=== PATIENT | female | born 1955 | race Hispanic/Latino ===

== ENCOUNTER 2022-01-16 13:59 | Emergency (ER) | payer OTHER ==
--- OUTSIDE RECORDS SUMMARY | 2022-01-16 14:04 | XMS REPORT | Continuity of Care Document ---
:1955 Author Organization [facility] t Address [address] [place] [address] Care Team Providers Name Role Phone Dalila Attending Clinician Unavailable Govind Attending Clinician Unavailable JENAE Attending Clinician Unavailable Dominique Attending Clinician Unavailable Dalila Admitting Clinician Unavailable Govind Admitting Clinician Unavailable JENAE Admitting Clinician Unavailable Dominique Admitting Clinician Unavailable Payers Payer Name Policy Type Policy Number Effective Date Expiration Date S ource [place] [id number] 2021 AD[place] (HMO) 00:00:00 [place] [id number] 2020 [place] (PPO[place] 00:00:00 AETNA - CHOICE [id number] 2014 2020 (POS II) 00:00:00 00:00:00 Problems Condition Condition Condition Status Onset Resolution Last Treating Co mments Source Name Details Category Date Date Treatment Clinician Date Infestatio Infestatio Problem Active 2017-05 [facility] by bed n by Bed 1-20 da bug Bug 00:00: Medical 00 Group Candidiasi Candidiasi Problem Active [facility] of s of da vagina [facility] Diabetes Diabetes Problem Active [facility] mellitus [facility] Type 2 Type 2 Problem Active [facility] diabetes Diabetes da mellitus [facility] without without Group complicati Complicati on on Type II Type II Problem Active [place] diabetes Diabetes da mellitus [facility] uncontroll Uncontroll Gr oup ed ed Neuropathy Neuropathy Problem Active [facility] due to Due to da diabetes Diabetes Medica l mellitus [facility] Group Vitamin D Vitamin D Problem Active [facility] deficiency Deficiency [facility] Hyperlipid Hyperlipid Problem Active [facility] emia emia [facility] Central Central Problem Active [place] obesity Obesity [facility] Obstructiv Obstructiv Problem Active [facility] e sleep e Sleep da apnea Apnea Medical syndrome Syndrome Group Essential Essential Problem Active [facility] hypertensi Hypertensi da on on Medical Group Varicose Varicose Problem Active [place] veins of Veins of da lower Lower Medical extremity Extremity Grou p Gastroesop Gastroesop Problem Active [facility] hageal hageal da reflux Reflux Medical disease Disease Group Constipati Constipati Problem Active [facility] on on [facility] Group Chronic Chronic Problem Active [facility] constipati Constipati da on on Medical Group Osteoarthr Osteoarthr Problem Active [facility] itis of itis of da knee Knee Medical Group Knee pain Knee Pain Problem Active [facility] Knee joint Knee Joint Problem Active [facility] painful on Painful on da movement Movement Medica l Group Piriformis Piriformis Problem Active [facility] syndrome Syndrome [facility] Chronic Chronic Problem Active [facility] back pain Back Pain [facility] Peripheral Peripheral Problem Active [facility] edema Edema [facility] Metatarsal Metatarsal Problem Active [facility] dallin dallin [facility] Pain in Pain in Problem Active [facility] left knee Left Knee [facility] Allergies, Adverse Reactions, Alerts Allergy Allergy Status Severity Reaction(s) Onset Inactive Treating Comm ents Source Name Type Date Date Clinician Iodine Allergy Active Moderate Rash [place] to to severe da substanc Medical e Group Social History Smoking Status Start Date Stop Date Source Never Smoker [facility] Medications Ordered Filled Start Stop Current Ordering Indication Dosage Frequency Signature Comments Components Source Medication Medication Date Date Medication? Clinician (SIG) Name Name aspirin 81 aspirin 81 No 1 Q1D aspirin 81 [place] mg mg mg da tablet,lazaro tablet,lazaro tablet,del Medical yed release yed release ayed G roup Take 1 Take 1 release tablet tablet Take 1 every day every day tablet by oral by oral every day route. route. by oral route. Farxiga 10 Farxiga 10 No Farxiga 10 [place] mg tablet mg tablet mg tablet da TAKE 1 TAKE 1 TAKE 1 Medical TABLET BY TABLET BY TABLET BY Group MOUTH EVERY MOUTH EVERY MOUTH DAY IN THE DAY IN THE EVERY DAY MORNING MORNING IN THE MORNING insulin insulin No insulin [facility] syringe syringe syringe da U-100 with U-100 with U-100 with Medical needle 0.5 needle 0.5 needle 0.5 Group mL 30 gauge mL 30 gauge mL 30 x 5/16" x /16" gauge x 516" isosorbide isosorbide No isosorbide [place] mononitrate mononitrate mononitrat da ER 60 mg ER 60 mg e ER 60 mg M edical tablet,exte tablet,exte tablet,ext Group nded nded ended release 24 release 24 release 24 hr TAKE 1 hr TAKE 1 hr TAKE 1 TABLET TABLET TABLET EVERY DAY EVERY DAY EVERY DAY BY ORAL BY ORAL BY ORAL ROUTE ROUTE ROUTE DIRECTED DIRECTED DIRECTED FOR 90 FOR 90 FOR 90 DAYS. DAYS. DAYS. Janumet XR Janumet XR No Janumet XR [place] 100 100 100 da mg-1,000 mg mg-1,000 mg mg-1,000 Medical tablet,exte tablet,exte mg G roup nded nded tablet,ext release release ended TAKE 1 TAKE 1 release TABLET TABLET TAKE 1 EVERY DAY EVERY DAY TABLET BY ORAL BY ORAL EVERY DAY ROUTE ROUTE BY ORAL BEFORE BEFORE ROUTE MEALS FOR MEALS FOR BEFORE 90 DAYS. 90 DAYS. MEALS FOR 90 DAYS. losartan losartan No losartan [place] 100 mg 100 mg 100 mg da tablet TAKE tablet TAKE tablet Medical 1 TABLET BY 1 TABLET BY TAKE 1 Group MOUTH EVERY MOUTH EVERY TABLET BY DAY IN THE DAY IN THE MOUTH MORNING MORNING EVERY DAY IN THE MORNING metoprolol metoprolol No metoprolol [place] tartrate 50 tartrate 50 tartrate da mg tablet mg tablet 50 mg Medi amanda TAKE 1 TAKE 1 tablet Group TABLET TABLET TAKE 1 TWICE A DAY TWICE A DAY TABLET TWICE A DAY NovoFine NovoFine No NovoFine [facility] Plus 32 Plus 32 Plus 32 da gauge x gauge x gauge x Medica l 06/04" needle 06/04" needle 06/04" G roup use as use as needle use directed directed as directed Novolin Novolin No 18unit( Q1D Novolin [place] 70/30 U-100 70/30 U-100 s) 70/30 da Insulin 100 Insulin 100 U-100 Medical unit/mL unit/mL Insulin Group subcutaneou subcutaneou 100 s s unit/mL suspension suspension subcutaneo Inject 18 Inject 18 us units every units every suspension day by day by Inject 18 subcutaneou subcutaneou units s route in s route in every day the the by morning. 10 morning. 10 subcutaneo u ac u ac us route evening evening in the meal meal morning. 10 u ac evening meal Novolog Mix Novolog Mix No Novolog [place] 70-30 70-30 Mix 70-30 da FlexPen FlexPen FlexPen Medica l U-100 U-100 U-100 Group Insulin 100 Insulin 100 Insulin unit/mL unit/mL 100 subcutaneou subcutaneou unit/mL s pen s pen subcutaneo INJECT INJECT us pen SUBCUTANEOU SUBCUTANEOU INJECT SLY 18 SLY 18 SUBCUTANEO UNITS EVERY UNITS EVERY USLY 18 MORNING AND MORNING AND UNITS 10 UNITS 10 UNITS EVERY EVERY EVERY MORNING EVENING EVENING AND 10 UNITS EVERY EVENING ondansetron ondansetron No ondansetro [place] 8 mg 8 mg n 8 mg da disintegrat disintegrat disintegra Medical ing tablet ing tablet ting Александр up Place 1 [address] 1 every 8 every 8 tablet hours by hours by every 8 translingua translingua hours by l route as l route as translingu needed. needed. al route as needed. Os-Amanda 500 Os-Amanda 500 No 1 BID Os-Amanda 500 [place] + D3 500 + D3 500 + D3 500 da mg-5 mcg mg-5 mcg mg-5 mcg Med ical (200 unit) (200 unit) (200 unit) Group tablet Take tablet Take tablet 1 tablet 1 tablet Take 1 twice a day twice a day tablet by oral by oral twice a route. route. day by oral route. pantoprazol pantoprazol No pantoprazo [place] e 40 mg e 40 mg le 40 mg da tablet,lazaro tablet,lazaro tablet,del Medical yed release yed release ayed G roup release pravastatin pravastatin No pravastati [place] 40 mg 40 mg n 40 mg da tablet Take tablet Take tablet Medical 1 tablet 1 tablet Take 1 Group every day every day tablet by oral by oral every day route. route. by oral route. travoprost travoprost No travoprost [facility] 0.004 % eye 0.004 % eye 0.004 % da drops drops eye drops Medical INSTILL ONE INSTILL ONE INSTILL Group DROP IN DROP IN ONE DROP BOTH EYES BOTH EYES IN BOTH AT BEDTIME AT BEDTIME EYES AT BEDTIME Immunizations Ordered Immunization Filled Immunization Date Status Commen ts Source Name Name COVID-19, mRNA, COVID-19, mRNA, 2021-06-27 Completed [facility] LNP-S, PF, 100 LNP-S, PF, 100 00:00:00 Medica l Group mcg/0.5 mL dose mcg/0.5 mL dose (Moderna) (Moderna) Influenza vaccine, Influenza vaccine, 2021-03-05 Completed [place] quadrivalent, quadrivalent, 18:25:00 Medical Group adjuvanted adjuvanted COVID-19, mRNA, COVID-19, mRNA, 2020-07-30 Completed [facility] LNP-S, PF, 100 LNP-S, PF, 100 00:00:00 Medica l Group mcg/0.5 mL dose mcg/0.5 mL dose (Moderna) (Moderna) COVID-19, mRNA, COVID-19, mRNA, 2020-07-04 Completed [facility] LNP-S, PF, 100 LNP-S, PF, 100 00:00:00 Medica l Group mcg/0.5 mL dose mcg/0.5 mL dose (Moderna) (Moderna) pneumococcal pneumococcal 2020-03-13 Completed [place] conjugate PCV 13 conjugate PCV 13 15:30:00 [place] dical Group Tdap Tdap 2017-07-21 Completed [place] 18:15:00 Medical Group influenza, seasonal, influenza, 2012-05-30 Completed [facility] injectable seasonal, 00:00:00 Medical Group injectable pneumococcal, pneumococcal, 2006-05-30 Completed [place] a unspecified unspecified 00:00:00 Medical Grou p formulation formulation Vital Signs Vital Name Observation Time Observation Value Comments Source BP Diastolic 2021-12-04 00:00:00 83 [facility] Height 2021-12-04 00:00:00 61 [in_i] [facility] BMI (Body Mass 2021-12-04 00:00:00 40.8 kg/m2 [facility] intellectual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 BP Systolic 2021-12-04 00:00:00 127 mm[Hg] [facility] Body Weight 2021-12-04 00:00:00 3456 [oz_av] [facility] BP Diastolic 2021-06-17 00:00:00 87 mm[Hg] [facility] Height 2021-06-17 00:00:00 61 [in_i] [facility] BMI (Body Mass 2021-06-17 00:00:00 39.9 kg/m2 [facility] Medical Index) Group BP Systolic 2021-06-17 00:00:00 133 mm[Hg] [facility] Body Weight 2021-06-17 00:00:00 3376 [oz_av] [facility] BP Diastolic 2021-04-10 00:00:00 75 mm[Hg] [facility] Height 2021-04-10 00:00:00 61 [in_i] [facility] BMI (Body Mass 2021-04-10 00:00:00 40.2 kg/m2 [facility] Medical Index) Group BP Systolic 2021-04-10 00:00:00 146 mm[Hg] [facility] Body Weight 2021-04-10 00:00:00 3408 [oz_av] [facility] BP Diastolic 2021-03-24 00:00:00 97 mm[Hg] [facility] Height 2021-03-24 00:00:00 61 [in_i] [facility] BMI (Body Mass 2021-03-24 00:00:00 41.9 kg/m2 [facility] Medical Index) Group BP Systolic 2021-03-24 00:00:00 170 mm[Hg] [facility] Body Weight 2021-03-24 00:00:00 3552 [oz_av] [facility] BP Diastolic 2021-03-05 00:00:00 77 mm[Hg] [facility] Height 2021-03-05 00:00:00 61 [in_i] [facility] BMI (Body Mass 2021-03-05 00:00:00 41.4 kg/m2 [facility] Medical Index) Group BP Systolic 2021-03-05 00:00:00 132 mm[Hg] [facility] Body Weight 2021-03-05 00:00:00 3504 [oz_av] [facility] BP Diastolic 2020-11-27 00:00:00 82 mm[Hg] [facility] Height 2020-11-27 00:00:00 61 [in_i] [facility] BMI (Body Mass 2020-11-27 00:00:00 41.1 kg/m2 [facility] Medical Index) Group BP Systolic 2020-11-27 00:00:00 136 mm[Hg] [facility] Body Weight 2020-11-27 00:00:00 3480 [oz_av] [facility] BP Diastolic 2020-10-09 00:00:00 75 mm[Hg] [facility] Height 2020-10-09 00:00:00 61 [in_i] [facility] BMI (Body Mass 2020-10-09 00:00:00 40.6 kg/m2 [facility] Medical Index) Group BP Systolic 2020-10-09 00:00:00 142 mm[Hg] [facility] Body Weight 2020-10-09 00:00:00 3440 [oz_av] [facility] BP Diastolic 2020-07-10 00:00:00 80 mm[Hg] [facility] Height 2020-07-10 00:00:00 61 [in_i] [facility] BMI (Body Mass 2020-07-10 00:00:00 39.7 kg/m2 [facility] Medical Index) Group BP Systolic 2020-07-10 00:00:00 146 mm[Hg] [facility] Body Weight 2020-07-10 00:00:00 3360 [oz_av] [facility] BP Diastolic 2020-03-13 00:00:00 75 mm[Hg] [facility] Height 2020-03-13 00:00:00 61 [in_i] [facility] BMI (Body Mass 2020-03-13 00:00:00 40.8 kg/m2 [facility] Medical Index) Group BP Systolic 2020-03-13 00:00:00 134 mm[Hg] [facility] Body Weight 2020-03-13 00:00:00 3456 [oz_av] [facility] BP Diastolic 2020-02-13 00:00:00 72 mm[Hg] [facility] Height 2020-02-13 00:00:00 61 [in_i] [facility] BMI (Body Mass 2020-02-13 00:00:00 41.2 kg/m2 [facility] Medical Index) Group BP Systolic 2020-02-13 00:00:00 108 mm[Hg] [facility] Body Weight 2020-02-13 00:00:00 3488 [oz_av] [facility] BP Diastolic 2019-10-31 00:00:00 69 mm[Hg] [facility] Height 2019-10-31 00:00:00 61 [in_i] [facility] BMI (Body Mass 2019-10-31 00:00:00 41.8 kg/m2 [facility] Medical Index) Group BP Systolic 2019-10-31 00:00:00 133 mm[Hg] [facility] Body Weight 2019-10-31 00:00:00 3536 [oz_av] [facility] BP Diastolic 2019-06-20 00:00:00 81 mm[Hg] [facility] Height 2019-06-20 00:00:00 61 [in_i] [facility] BMI (Body Mass 2019-06-20 00:00:00 40.1 kg/m2 [facility] BP Systolic 2019-06-20 00:00:00 125 mm[Hg] [facility] Body Weight 2019-06-20 00:00:00 3392 [oz_av] [facility] BP Diastolic 2019-04-05 00:00:00 72 mm[Hg] [facility] Height 2019-04-05 00:00:00 61 [in_i] [facility] BMI (Body Mass 2019-04-05 00:00:00 40.7 kg/m2 [facility] BP Systolic 2019-04-05 00:00:00 139 mm[Hg] [facility] Body Weight 2019-04-05 00:00:00 3443.2 [oz_av] [facility] BP Diastolic 2019-03-15 00:00:00 74 mm[Hg] [facility] Height 2019-03-15 00:00:00 61 [in_i] [facility] BMI (Body Mass 2019-03-15 00:00:00 41.6 kg/m2 [facility] Medical Index) Group BP Systolic 2019-03-15 00:00:00 138 mm[Hg] [facility] Body Weight 2019-03-15 00:00:00 3521.6 [oz_av] [facility] BP Diastolic 2019-02-01 00:00:00 69 mm[Hg] [facility] Height 2019-02-01 00:00:00 61 [in_i] [facility] BMI (Body Mass 2019-02-01 00:00:00 41.8 kg/m2 [facility] Medical Index) Group BP Systolic 2019-02-01 00:00:00 124 mm[Hg] [facility] Body Weight 2019-02-01 00:00:00 3537.6 [oz_av] [facility] BP Diastolic 2018-12-19 00:00:00 80 mm[Hg] [facility] Height 2018-12-19 00:00:00 61 [in_i] [facility] BMI (Body Mass 2018-12-19 00:00:00 42.3 kg/m2 [facility] Medical Index) Group BP Systolic 2018-12-19 00:00:00 140 mm[Hg] [facility] Body Weight 2018-12-19 00:00:00 224 [lb_av] [facility] BP Diastolic 2018-12-05 00:00:00 80 mm[Hg] [facility] Height 2018-12-05 00:00:00 61 [in_i] [facility] BMI (Body Mass 2018-12-05 00:00:00 42.3 kg/m2 [facility] Medical Index) Group BP Systolic 2018-12-05 00:00:00 140 mm[Hg] [facility] Body Weight 2018-12-05 00:00:00 224 [lb_av] [facility] BP Diastolic 2018-11-28 00:00:00 80 mm[Hg] [facility] Height 2018-11-28 00:00:00 61 [in_i] [facility] BMI (Body Mass 2018-11-28 00:00:00 42.3 kg/m2 [facility]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 BP Systolic 2018-11-28 00:00:00 140 mm[Hg] [facility] Body Weight 2018-11-28 00:00:00 224 [lb_av] [facility] BP Diastolic 2018-11-02 00:00:00 77 mm[Hg] [facility] Height 2018-11-02 00:00:00 61 [in_i] [facility] BMI (Body Mass 2018-11-02 00:00:00 42.7 kg/m2 [facility]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 BP Systolic 2018-11-02 00:00:00 148 mm[Hg] [facility] Body Weight 2018-11-02 00:00:00 3612.8 [oz_av] [facility] Height 2018-07-18 00:00:00 61 [in_i] [facility] BMI (Body Mass 2018-07-18 00:00:00 41.9 kg/m2 [facility]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 Body Weight 2018-07-18 00:00:00 3545.6 [oz_av] [facility] Height 2018-07-04 00:00:00 61 [in_i] [facility] BMI (Body Mass 2018-07-04 00:00:00 41 kg/m2 [facility]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 Body Weight 2018-07-04 00:00:00 217 [lb_av] [facility] Procedures Procedure Date / Time Performing Clinician Source Performed ECG WITH INTERPRETATION 2021-06-17 00:00:00 [facility] 12 LEADS Group ECG WITH INTERPRETATION 2020-10-09 00:00:00 [facility] 12 [facility] Total Knee Arthroplasty 2017-09-13 00:00:00 [facility] Colonoscopy 2013-05-30 00:00:00 [facility] Caesarean Section [facility] Hysterectomy [facility] Plan of Care Planned Activity Planned Date Details Comments Source Future Appointment 2022-04-07 Amilcar Velez 10:00:00 [facility] [address]; [place] [address] Instructions [facility] Encounters Start End Encounter Admission Attending Care Care Encounter Source Date/Time Date/Time Type Type Clinicians Facility Department ID 2021-12-04 2021-12-04 Outpatient [facility] [id number] [place] 03:00:00 03:00:00 708 [facility] 2021-12-04 2021-12-04 Outpatient [facility] [id number] 220 [place] 03:00:00 03:00:00 718 [facility] 2021-12-04 2021-12-04 Waldo WIL[place]INS [place] - [id number] [facility] 00:00:00 00:00:00 Discovery Dalila da PA: [address] [facility] [address] [address] , Ph. 2021-11-19 2021-11-19 Outpatient [facility]G [id number] 220 [place] 06:02:00 06:02:00 623 [facility] 2021-07-21 2021-07-21 Outpatient [facility]G [id number] 220 [place] 03:45:00 03:45:00 311 [facility] 2021-07-21 2021-07-21 Outpatient [facility] MMG [id number] 220 [place] 03:45:00 03:45:00 527 [facility] 2021-06-17 2021-06-17 Outpatient [facility]G [id number] 220 [place] 04:56:00 04:56:00 119 [facility] 2021-06-17 2021-06-17 Outpatient [facility] MMG [id number] 220 [place] 04:56:00 04:56:00 120 [facility] 2021-06-17 2021-06-17 Waldo WIL[place]INS [place] - [id number] M [facility] 00:00:00 00:00:00 Discovery Dalila da [facility]: [address] [facility] [address] [address] , Ph. 2021-06-15 2021-06-15 Outpatient [facility] MMG [id number] 220 [place] 03:34:00 03:34:00 117 [facility] 2021-04-10 2021-04-10 Outpatient [facility] MMG [id number] 211 [place] 11:33:00 11:33:00 112 [facility] 2021-04-10 2021-04-10 Outpatient [facility] MMG [id number] 211 [place] 11:33:00 11:33:00 222 [facility] 2021-04-10 2021-04-10 Outpatient [facility] MMG [id number] 211 [place] 11:33:00 11:33:00 230 [facility] 2021-04-10 2021-04-10 Waldo MMG [place] - [id number] M [facility] 00:00:00 00:00:00 Discovery devon Conner PA: [address] [facility] - [address], [facility] [address] , Ph. 2021-04-03 2021-04-03 Outpatient [facility] MMG [id number] 211 [place] 02:33:00 02:33:00 105 [facility] 2021-03-24 2021-03-24 Outpatient Korefugiola_A [facility]G MMG [id number]- [place] 10:59:00 10:59:00 026 [facility] 2021-03-24 2021-03-24 Marita MMG [place] - [id number] M [facility] 00:00:00 00:00:00 Discovery devon Peterson PA-C: [address] [facility] - [address], [facility] [address] , Ph. 2021-03-05 2021-03-05 Outpatient [facility] MMG [id number] 211 [place] 04:25:00 04:25:00 007 [facility] 2021-03-05 2021-03-05 Outpatient [facility] MMG [id number] 211 [place] 04:25:00 04:25:00 009 [facility] 2021-03-05 2021-03-05 Waldo MMG [place] - [id number] M [facility] 00:00:00 00:00:00 Discovery Dalila da PA: [address] [facility] - [address], [facility] [address] , Ph. 2020-12-11 2020-12-11 [address] [facility] [id number] [place] 02:33:00 02:33:00 [place] [id number] [facility] 2020-11-28 2020-11-28 Outpatient [facility] MMG [id number] 211 [place] 10:17:00 10:17:00 001 [facility] 2020-11-27 2020-11-27 Outpatient [facility] MMG [id number] 210 [place] 04:40:00 04:40:00 701 [facility] 2020-11-27 2020-11-27 Waldo MMG [place] - [id number] M [facility] 00:00:00 00:00:00 Discovery Dalila da PA: [address] [facility] [address] [place] [address] , Ph. 2020-11-26 2020-11-26 Outpatient [facility] MMG [id number] 210 [place] 05:32:00 05:32:00 630 [facility] 2020-11-08 2020-11-08 Outpatient Hawkins_M MMG MMG [id number] [place] 06:31:00 06:31:00 612 [facility] 2020-10-14 2020-10-14 Outpatient Hawkins_M [facility]G MMG [id number]- [place] 03:28:00 03:28:00 518 [facility] 2020-10-09 2020-10-09 Outpatient Hawkins_M [facility]G MMG [id number]- [place] 04:10:00 04:10:00 513 [facility] 2020-10-09 2020-10-09 Waldo MMG [place] - [id number] M [facility] 00:00:00 00:00:00 Discovery Dalila da PA: [address] [facility] [place] - [address], [facility] [address] , Ph. 2020-10-04 2020-10-04 Outpatient [facility] MMG [id number] 210 [place] 01:01:00 01:01:00 508 [facility] 2020-09-17 2020-09-17 Outpatient [facility] MMG [id number] 210 [place] 05:44:00 05:44:00 421 [facility] 2020-08-30 2020-08-30 Outpatient [facility] MMG [id number] 210 [place] 01:02:00 01:02:00 403 [facility] 2020-07-26 2020-07-26 Outpatient [facility] MMG [id number] 210 [place] 01:03:00 01:03:00 227 [facility] 2020-07-17 2020-07-17 Outpatient [facility] MMG [id number] 210 [place] 04:45:00 04:45:00 218 [facility] 2020-07-10 2020-07-10 Outpatient [facility] MMG [id number] 210 [place] 05:07:00 05:07:00 211 [facility] 2020-07-10 2020-07-10 Waldo MM [place] - [id number] M [facility] 00:00:00 00:00:00 Discovery Dalila da PA: [address] [facility] [address] [place] [address] , Ph. 2020-06-23 2020-06-23 Outpatient LA MADDOX UTMARY LOU [id number] [place] 10:22:00 10:22:[id number] [facility] 2020-06-10 2020-06-10 Outpatient [facility] MMG [id number] 210 [place] 04:26:00 04:26:00 112 [facility] 2020-05-07 2020-05-07 Outpatient [facility] MMG [id number] 201 [place] 01:03:00 01:03:00 209 [facility] 2020-04-02 2020-04-02 Outpatient [facility] MMG [id number] 201 [place] 01:04:00 01:04:00 104 [facility] 2020-04-02 2020-04-02 Outpatient [facility] MMG [id number] 201 [place] 01:04:00 01:04:00 111 [facility] 2020-03-15 2020-03-15 Outpatient [facility] MMG [id number] 201 [place] 11:28:00 11:28:00 017 [facility] 2020-03-13 2020-03-13 Outpatient [facility] MMG [id number] 201 [place] 03:54:00 03:54:00 015 [facility] 2020-03-13 2020-03-13 Outpatient [facility] MMG [id number] 201 [place] 03:54:00 03:54:00 016 [facility] 2020-03-13 [facility] [place] [facility] [id number] 00:00:00 00:00:00 Discovery Dalila da PA: [address] [facility] [place] [address], [facility], [facility] [place] [address] , Ph. 2020-03-12 2020-03-12 Outpatient [facility] MMG [id number] 201 [place] 12:46:00 12:46:00 014 [facility] 2020-03-03 2020-03-03 Outpatient [facility] MMG [id number] 201 [place] 04:43:00 04:43:00 005 [facility] 2020-02-26 2020-02-26 Outpatient [facility] MMG [id number] 200 [place] 11:05:00 11:05:00 929 [facility] 2020-02-16 2020-02-16 Outpatient [facility] MMG [id number] 200 [place] 12:26:00 12:26:00 919 [facility] 2020-02-14 2020-02-14 Outpatient [facility] MMG [id number] 200 [place] 10:48:00 10:48:00 [facility] 2020-02-13 2020-02-13 Outpatient [facility] [id number] 200 [place] 04:21:00 04:21:00 [facility] 2020-02-13 2020-02-13 [place] [facility] [place] - [id number] M [place] 00:00:00 00:00:00 Discovery Dalila da PA: [address] [facility] [place] - [address], [facility] [address] , Ph. 2019-11-09 2019-11-09 Outpatient [facility] [id number] 200 [place] 11:36:00 11:36:00 [facility] 2019-11-01 2019-11-01 Outpatient [facility] [id number] 200 [place] 12:47:00 12:47:00 [facility] 2019-10-31 2019-10-31 Outpatient [facility]G [id number] 200 [place] 03:33:00 03:33:00 [facility] 2019-10-31 2019-10-31 [place] [facility] [place] - [id number] M [place] 00:00:00 00:00:00 Discovery Dalila da PA: [address] [facility] [place] - [address] [place] [address] , Ph. 2019-08-24 2019-08-24 Outpatient [facility] [id number] 200 [place] 10:50:00 10:50:00 [facility] 2019-08-13 2019-08-13 Outpatient [facility] [id number] 200 [place] 06:19:00 06:19:00 [facility] 2019-08-03 2019-08-03 Outpatient [facility] [id number] 200 [place] 12:31:00 12:31:00 [facility] 2019-06-20 2019-06-20 Outpatient [facility] [id number] 200 [place] 05:03:00 05:03:00 122 devon [facility] 2019-06-20 2019-06-20 [place] [facility] [place] - [id number] M [place] 00:00:00 00:00:00 Discovery devon Conner PA: [address] [place], [place] [address] - [address], [facility] [place] [address] , Ph. 2019-05-07 2019-05-07 Outpatient Am[facility]aux [facility] [id number] 200 [place] 10:05:00 10:05:00 Tiburcio osorio [facility] 2019-04-05 2019-04-05 [place] [facility] [place] - [id number] M [place] 00:00:00 00:00:00 Discovery devon Conner PA: [address] [place], [place] [address] - [address], [facility] [place] [address] , Ph. 2019-03-15 2019-03-15 [place] [facility] [place] - [id number] M [place] 00:00:00 00:00:00 Discovery devon Conner PA: [address] [place], [place] [address] - [address], [facility] [place] [address] , Ph. 2019-02-01 2019-02-01 Waldo [facility] [place] - [id number] M [place] 00:00:00 00:00:00 Discovery devon Conner PA: [address] [place] [address], [place] [address], [facility] [place] [address] , Ph. 2018-12-19 2018-12-19 [place] [facility] [place] - [id number] M [place] 00:00:00 00:00:00 Discovery devon Vang MD: [address] [place] [address] [address], [place] [address] , Ph. 2018-12-05 2018-12-05 [place] [facility] [place] - [id number] M [place] 00:00:00 00:00:00 Discovery devon Vang MD: [address] [place] [address] - [address], [place] [address] , Ph. [phone] 2018-11-28 2018-11-28 [place] - [id number] M [place] 00:00:00 00:00:00 Discovery devon Vang MD: [address] [place] [address] - [address], [place] [address] , Ph. [phone] 2018-11-02 2018-11-02 Waldo [place] - [id number] M [place] 00:00:00 00:00:00 Discovery devon Conner PA: [address] [place] [address], [place] [address] [address] , Ph. 2018-07-18 2018-07-18 Waldo [place] - [id number] M [place] 00:00:00 00:00:00 Discovery devon Conner PA: [address] [place] [address], [place] [address], [facility] [address] , Ph. 2018-07-04 2018-07-04 [place] - [id number] M [place] 00:00:00 00:00:00 Discovery devon Vang MD: [address] [place] [address] - [facility] [address], [place] [address] , Ph. Results Test Test Test Results Result Source Description Time Comments Comments Microalbumin NormalMicroalbulminuriaMacroalbumi derrick [place] [Mass/volume] 11-23 Medical in Urine 16:22 Group :00 quest collection 2021-03-20 00:00:00 Test Item Value Reference Range Interpretation Comme nts quest collection (test code = quest collection) [facility] [place] [facility] [Mass/volume] in [id number] 12:02:00 NormalMicroalbulminuriaMacroalbuminuriaMatagorda [facility] blood [id number] 02:27:00 Test Item Value Reference Range Interpretation Comments [facility] blood collection sent to [facility] (test code = [facility] blood collection) [facility] blood [id number] 02:27:00 Test Item Value Reference Range Interpretation Comments [facility] blood collection sent to [facility] (test code = [facility] blood collection) [facility]
[2022-01-16 14:42] LABS: Urine Blood 2+ (Negative); Urine Glucose 3+ (Negative); Urine Protein 1+ (Negative); Urine Specific Gravity <=1.005 (1.005-1.030); Urine pH 5.5 (5.0-7.0)
[2022-01-16 15:08] LABS: Absolute Lymphocytes (CBC) 0.9 K/uL (0.7-4.9); Hematocrit 42.2 % (36.0-45.0); Lymphocytes % 5.8 % (15.3-44.8); MCV 92.5 fL (80-100); MPV 7.8 fL (7.6-11.3); RBC Red Blood Cell Count 4.56 M/uL (3.86-4.86)
[2022-01-16 15:56] LABS: Urine Bacteria 20-50 /HPF (<20)
[2022-01-16 16:23] LABS: ALT/SGPT 24 U/L (12-78); AST/SGOT 29 U/L (15-37); Albumin 2.9 g/dL (3.4-5.0); Alkaline Phosphatase 112 U/L (45-117); BUN Blood Urea Nitrogen 22 mg/dL (7-18); Bicarbonate 29 mmol/L (21-32); Bilirubin Total 0.7 mg/dL (0.2-1.0); Glomerular Filtration Rate 60 ml/min (=/>90); Glucose Level 239 mg/dL (74-106); Lipase 48 U/L (73-393); Potassium 4.7 mmol/L (3.5-5.1); Sodium Level 134 mmol/L (136-145)
[2022-01-16] MEDS ORDERED: FENTANYL CITR 100 MCG/2 ML ONE (16:58)
[2022-01-16] MEDS ORDERED: CEFTRIAXONE 1000 MG/VIAL ONE (16:58)
[2022-01-16] MEDS ORDERED: NA CHLORIDE 0.9% 500 ML ONE (16:59)
[2022-01-16] MEDS ORDERED: NA CHLORIDE 0.9% 100 ML ONE (16:59)
--- NOTE | 2022-01-16 17:18 | RAD REPORT ---
EXAM DESCRIPTION: CT - Stone Protocol - 01/16/2022 5:10 pm CLINICAL HISTORY: lower abdomen pain COMPARISON: No comparisons TECHNIQUE: Axial 3 mm thick images were obtained without oral or IV contrast. The [id number] span s the entirety of the system including uppermost abdomen and lung bases. All CT scans are performed using dose optimization technique as appropriate and may include automated exposure control or mA/KV adjustment according to patient size. FINDINGS: Mild right-sided hydronephrosis is present. There is a 3 mm distal right ureter stone appr oximately 2 cm from the UVJ. Perinephric fluid in stranding are present on the right. No other obstru cting or nonobstructing calculi. No left-sided calculi or hydronephrosis present. No suspicious renal masses. Isodense masses and pyelonephritis are not excluded on a stone protocol CT scan. No signific ant adrenal finding. No urinary bladder suspicious finding. Imaged portions of the liver, spleen and pancreas show no suspicious findings on non-contrast imaging . No gallbladder or biliary tree abnormality identified. No suspicious bowel findings. Uterus and ovaries show no suspicious findings. Appendix is normal. No hernia, mass or bulky lymphadenopathy noted. No free air, free fluid or inflammatory stranding. No significant bony abnormality. Right hemidiaphragm elevation is present with chronic right base ate lectasis. IMPRESSION: Mild right-sided hydronephrosis secondary to a 3 mm distal right ureteral stone approxim ately 2 cm from the UVJ. Right perinephric stranding is present and there is mild edema along the course of the right ureter. Isodense masses and pyelonephritis are not excluded on stone protocol technique.
[2022-01-16] MEDS ORDERED: TAMSULOSIN 0.4 MG SR CAP ONE (17:53)
[2022-01-16] MEDS ORDERED: MAGNESIUM SULFATE 1 gm IVPB 1 GM/100 ML BAG IV ONE (17:53)
--- NOTE | 2022-01-16 18:58 | EDPHYS ---
Physician Documentation [facility] Name: Brenda Hilton Age: 66 yrs Sex: Female : 1955 Arrival Date: 01/16/2022 Time: 14:03 Bed 23 Private MD: Gabby Tejedah ED Physician Becky Church HPI: 01/16 15:00 This 66 yrs old Female presents to ER via Ambulatory with complaints of cp Urinary Incontinence, Pelvic Pain, Dizziness, Nausea. 15:00 The patient presents with abdominal pain in the lower abdomen. Onset: The cp symptoms/episode began/occurred yesterday. 15:00 Associated signs and symptoms: Pertinent positives: dysuria, nausea, dizziness, cp Pertinent negatives: chest pain, constipation, diarrhea, fever, vomiting. The symptoms are described as constant. Severity of pain: in the emergency department the pain is unchanged. Historical: - Allergies: 14:27 shrimp; iw - Home Meds: 14:27 Humulin 70/30 U-100 Insulin 100 unit/mL (70-30) Sub-Q crtg [Active]; Janumet XR iw 100-1,000 mg oral TM24 1 tab once daily [Active]; Farxiga 10 mg oral tab 1 tab once daily [Active]; isosorbide mononitrate 60 mg Oral Tb24 1 tab once daily [Active]; losartan 100 mg oral tab 1 tab once daily [Active]; pravastatin 40 mg oral tab 1 tab once daily [Active]; aspirin 81 mg Oral TbEC 1 tab once daily [Active]; metoprolol tartrate 50 mg oral tab 2 times per day [Active]; Citracal 200 mg (950 mg) Oral tab [Active]; Systane Nighttime 94-3 % ophthalmic (eye) oint [Active]; Lumigan 0.03 % ophthalmic (eye) drop 1 drop once daily [Active]; - PMHx: 14:27 Diabetes mellitus; Hypertensive disorder; iw - PSHx: 14:27 section; iw - Immunization history:: Client reports receiving the 2nd dose of the Covid vaccine. - Social history:: Smoking status: Patient denies any tobacco usage or history of. ROS: 15:05 Constitutional: Negative for body aches, chills, fever, poor PO intake. cp 15:05 Eyes: Negative for injury, pain, redness, and discharge. cp 15:05 ENT: Negative for drainage from ear(s), ear pain, sore throat, difficulty swallowing, difficulty handling secretions. 15:05 Cardiovascular: Negative for chest pain, edema, palpitations. 15:05 Respiratory: Negative for cough, shortness of breath, wheezing. 15:05 Abdomen/GI: Positive for abdominal pain, of the lower abdomen, Negative for vomiting, diarrhea, constipation. 15:05 : Positive for pelvic pain, Negative for vaginal bleeding, vaginal discharge. 15:05 Neuro: Positive for dizziness, Negative for altered mental status, weakness. 15:05 All other systems are negative. Exam: 15:10 Constitutional: The patient appears in no acute distress, alert, awake, non-toxic, well cp developed, well nourished, overweight 15:10 Head/Face: Normocephalic, atraumatic. cp 15:10 Eyes: Periorbital structures: appear normal, Conjunctiva: normal, no exudate, no injection, Sclera: no appreciated abnormality, Lids and lashes: appear normal, bilaterally. 15:10 ENT: External ear(s): are unremarkable, Nose: is normal, Mouth: Lips: moist, Oral mucosa: moist, Posterior pharynx: Airway: no evidence of obstruction, patent. 15:10 Chest/axilla: Inspection: normal. 15:10 Cardiovascular: Rate: tachycardic, Rhythm: regular. 15:10 Respiratory: the patient does not display signs of respiratory distress, Respirations: normal, no use of accessory muscles, no retractions, labored breathing, is not present, Breath sounds: are clear throughout, no decreased breath sounds, no stridor, no wheezing. 15:10 Abdomen/GI: Inspection: abdomen appears normal, Bowel sounds: active, all quadrants, Palpation: soft, in all quadrants, moderate abdominal tenderness, in the right lower quadrant and left lower quadrant, rebound tenderness, is not appreciated, involuntary guarding, is not appreciated. 15:10 Back: CVA tenderness, is absent. 15:10 Skin: cellulitis, is not appreciated, no rash present. 15:10 Neuro: Orientation: to person, place \T\ time. Mentation: is normal, Motor: moves all fours, strength is normal, Sensation: is normal, Gait: is steady, at a normal pace, without difficulty. Vital Signs: 14:25 BP 123 / 63; Pulse 101; Resp 18; Temp 99.0; Pulse Ox 97% on R/A; Weight 95.25 kg; iw Height 5 ft. 1 in. (154.94 cm); 16:39 BP 132 / 63; Pulse 100; Resp 18; Pulse Ox 97% ; tp1 17:25 BP 109 / 52; Pulse 101; Resp 16; Pulse Ox 95% on R/A; tp1 18:23 BP 118 / 52; Pulse 95; Resp 16; Pulse Ox 95% on R/A; tp1 14:25 Body Mass Index 39.68 (95.25 kg, 154.94 cm) iw MDM: 16:37 Patient medically screened. cp 18:57 Data reviewed: vital signs, nurses notes, lab test result(s), radiologic studies, CT cp scan. 18:57 Differential diagnosis: appendicitis, diverticulitis, Pyelonephritis, Ureterolithiasis, cp urinary tract infection. Counseling: I had a detailed discussion with the patient and/or guardian regarding: the historical points, exam findings, and any diagnostic results supporting the discharge/admit diagnosis, lab results, radiology results, to return to the emergency department if symptoms worsen or persist or if there are any questions or concerns that arise at home. Response to treatment: the patient's symptoms have markedly improved after treatment, and as a result, I will discharge patient. 01/16 14:42 Order name: Urine Dipstick-Ancillary; Complete Time: 14:47 EDMS 01/16 15:55 Interpretation: Normal except: UGLUC 3+; UKET 2+; UBLD 2+; UPROT 1+; UESTR Trace. cp 01/16 14:47 Order name: Ketone, Serum; Complete Time: 16:37 cp 01/16 14:47 Order name: CBC with Diff; Complete Time: 15:54 cp 01/16 15:55 Interpretation: Normal except: WBC 14.70; LILI% 83.0; LYM% 5.8; NEUT A 12.2; MNA 1.6. cp 01/16 14:47 Order name: CMP; Complete Time: 16:37 cp 01/16 18:58 Interpretation: Normal except: NA 134; CL 97; GLUC 239; BUN 22; GFR 60; ALB 2.9; GLOB cp 4.1; A/G 0.7. 01/16 14:47 Order name: Lipase; Complete Time: 16:37 cp 01/16 14:47 Order name: Urine Microscopic Only; Complete Time: 16:37 cp 01/16 17:35 Interpretation: Normal except: UWBC 21-50; URBC 11-20; UBACT 20-50. cp 01/16 14:42 Order name: Urine Dipstick-Ancillary (obtain specimen); Complete Time: 14:42 iw 01/16 16:06 Order name: Urine Culture EDMS 01/16 16:41 Order name: CT Stone Protocol; Complete Time: 17:34 cp 01/16 14:47 Order name: IV Saline Lock; Complete Time: 15:00 cp 01/16 14:47 Order name: Labs collected and sent; Complete Time: 15:00 cp 01/16 15:29 Order name: Labs - recollect needed: recollect green top; Complete Time: 15:48 eb Administered Medications: 16:54 Drug: fentaNYL (PF) 25 mcg Route: IVP; Site: right antecubital; tp1 17:28 Follow up: Response: Pain is decreased tp1 16:57 Drug: Rocephin (cefTRIAXone) 1 grams Route: IV; Rate: calculated rate; Site: right tp1 antecubital; 17:54 Follow up: Response: No adverse reaction; IV Status: Completed infusion; IV Intake: tp1 100ml 17:24 Drug: NS 0.9% 500 ml Route: IV; Rate: bolus; Site: right antecubital; tp1 19:06 Follow up: IV Status: Completed infusion; IV Intake: 500ml tp1 17:47 Drug: Flomax (tamsulosin) 0.4 mg Route: PO; tp1 18:51 Follow up: Response: No adverse reaction tp1 17:54 Drug: Magnesium Sulfate 1 grams Route: IVPB; Infused Over: 1 hrs; Site: right tp1 antecubital; 18:51 Follow up: Response: No adverse reaction; IV Status: Completed infusion; IV Intake: tp1 100ml Disposition: 01/17 19:06 STAFF ATTESTATION STATEMENT: I was immediately available onsite in the emergency sd2 department for consultation in the care of this patient. I did not see or examine this patient. Becky Church MD. Disposition Summary: 01/16/22 18:57 Discharge Ordered Location: Home cp Problem: new cp Symptoms: have improved cp Condition: Stable cp Diagnosis - Calculus of ureter - right(01/16/22 19:00) cp - UTI/ Urinary tract infection, site not specified cp Followup: cp - With: Raffaele Weeks MD - When: 2 - 3 days - Reason: if pain continues Discharge Instructions: - Discharge Summary Sheet cp - Kidney Stones cp - Renal Colic cp - Urinary Tract Infection, Adult cp Forms: - Medication Reconciliation Form cp - Thank You Letter cp - Antibiotic Education cp - Prescription Opioid Use cp Prescriptions: - Flomax 0.4 mg Oral capsule - take 1 capsule by ORAL route once daily 1/2 hour following the same meal each cp day; 5 capsule; Refills: 0, Product Selection Permitted - Ibuprofen 800 mg Oral Tablet - take 1 tablet by ORAL route every 8 hours As needed take with food; 30 tablet; cp Refills: 0, Product Selection Permitted - Zofran 4 mg Oral Tablet - take 1 tablet by ORAL route every 12 hours As needed; 20 tablet; Refills: 0, cp Product Selection Permitted - Tylenol-Codeine #3 300 mg-30 mg Oral - take 2 tablet by ORAL route every 6-8 hours; 14 tablet; Refills: 0, Product cp Selection Permitted - Cipro 500 mg Oral Tablet - take 1 tablet by ORAL route every 12 hours for 7 days; 14 tablet; Refills: 0, cp Product Selection Permitted Signatures: Dispatcher [employer] Luzmaria Santacruz RN RN iw Aly Martinez PA PA cp Luciana Anthony Tiffany, RN RN alex1 Becky Church MD MD sd2 Corrections: (The following items were deleted from the chart) 01/16 14: 14:27 Allergies: No Known Allergies; iw 14: 14:27 PMHx: Hyperthyroidism; iw 19:00 18:57 Calculus of ureter cp cp 19: 18:57 Calculus of kidney with calculus of ureter cp cp
--- NOTE | 2022-01-16 18:58 | ER ---
Nurse's Notes [facility] Name: Brenda Hilton Age: 66 yrs Sex: Female : 1955 Arrival Date: 01/16/2022 Time: 14:03 Bed 23 Private MD: Ralph Tejeda Diagnosis: Calculus of ureter-right;UTI/ Urinary tract infection, site not specified Presentation: 01/16 14:25 Chief complaint: Patient states: last night I went to go pee and I didn't make it, and iw i have lower abd pain, also have nausea , no appetite. Coronavirus screen: Client presents with at least one sign or symptom that may indicate coronavirus-19. Ebola Screen: Patient negative for fever greater than or equal to 101.5 degrees Fahrenheit, and additional compatible Ebola Virus Disease symptoms Patient denies exposure to infectious person. Patient denies travel to an Ebola-affected area in the 21 days before illness onset. No symptoms or risks identified at this time. Initial Sepsis Screen: Does the patient meet any 2 criteria? No. Patient's initial sepsis screen is negative. Does the patient have a suspected source of infection? No. Patient's initial sepsis screen is negative. Risk Assessment: Do you want to hurt yourself or someone else? Patient reports no desire to harm self or others. Onset of symptoms was January 14, 2022. 14:25 Method Of Arrival: Ambulatory iw 14:25 Acuity: JAVY 3 iw Historical: - Allergies: 14:27 shrimp; iw - Home Meds: 14:27 Humulin 70/30 U-100 Insulin 100 unit/mL (70-30) Sub-Q crtg [Active]; Janumet XR iw 100-1,000 mg oral TM24 1 tab once daily [Active]; Farxiga 10 mg oral tab 1 tab once daily [Active]; isosorbide mononitrate 60 mg Oral Tb24 1 tab once daily [Active]; losartan 100 mg oral tab 1 tab once daily [Active]; pravastatin 40 mg oral tab 1 tab once daily [Active]; aspirin 81 mg Oral TbEC 1 tab once daily [Active]; metoprolol tartrate 50 mg oral tab 2 times per day [Active]; Citracal 200 mg (950 mg) Oral tab [Active]; Systane Nighttime 94-3 % ophthalmic (eye) oint [Active]; Lumigan 0.03 % ophthalmic (eye) drop 1 drop once daily [Active]; - PMHx: 14:27 Diabetes mellitus; Hypertensive disorder; iw - PSHx: 14:27 section; iw - Immunization history:: Client reports receiving the 2nd dose of the Covid vaccine. - Social history:: Smoking status: Patient denies any tobacco usage or history of. Screenin:39 Abuse screen: Denies threats or abuse. Nutritional screening: No deficits noted. tp1 Tuberculosis screening: No symptoms or risk factors identified. Fall Risk No secondary diagnosis (0 pts). IV access (20 points). Ambulatory Aid- None/Bed Rest/Nurse Assist (0 pts). Gait- Normal/Bed Rest/Wheelchair (0 pts) Mental Status- Oriented to own ability (0 pts). Total Tillman Fall Scale indicates No Risk (0-24 pts). Assessment: 16:39 General: Appears in no apparent distress. comfortable, Behavior is calm, cooperative. tp1 Pain: Complains of pain in forehead Pain does not radiate. Pain currently is 8 out of 10 on a pain scale. Quality of pain is described as aching, Pain began 11:30 Is continuous. Neuro: Level of Consciousness is awake, alert, obeys commands, Oriented to person, place, time, situation. Cardiovascular: Patient's skin is warm and dry. Respiratory: Airway is patent Respiratory effort is even, unlabored. GI: Abdomen is round non-distended, Abd is soft and non tender X 4 quads. Reports nausea, vomiting, Patient currently denies diarrhea. : Reports burning with urination, incontinence, urgency, urinary frequency. EENT: No signs and/or symptoms were reported regarding the EENT system. Derm: Skin is pink, warm \T\ dry. Musculoskeletal: Circulation, motion, and sensation intact. 17:24 Reassessment: Patient appears in no apparent distress at this time. No changes from tp1 previously documented assessment. Patient and/or family updated on plan of care and expected duration. Pain level reassessed. Patient is alert, oriented x 3, equal unlabored respirations, skin warm/dry/pink. Continues to CO a headache, rates pain 5/10. 18:23 Reassessment: Patient appears in no apparent distress at this time. No changes from tp1 previously documented assessment. Patient and/or family updated on plan of care and expected duration. Pain level reassessed. Patient is alert, oriented x 3, equal unlabored respirations, skin warm/dry/pink. Patient denies pain at this time. Vital Signs: 14:25 BP 123 / 63; Pulse 101; Resp 18; Temp 99.0; Pulse Ox 97% on R/A; Weight 95.25 kg; iw Height 5 ft. 1 in. (154.94 cm); 16:39 BP 132 / 63; Pulse 100; Resp 18; Pulse Ox 97% ; tp1 17:25 BP 109 / 52; Pulse 101; Resp 16; Pulse Ox 95% on R/A; tp1 18:23 BP 118 / 52; Pulse 95; Resp 16; Pulse Ox 95% on R/A; tp1 14:25 Body Mass Index 39.68 (95.25 kg, 154.94 cm) iw ED Course: 14:03 Patient arrived in ED. as 14:04 Ralph Tejeda DO is Private Physician. as 14:14 Becky Church MD is Attending Physician. sd2 14:14 Aly Martinez PA is PHCP. cp 14:27 Triage completed. iw 14:31 Arm band placed on. iw 15:00 CBC with Diff Sent. kb3 15:00 CMP Sent. kb3 15:00 Lipase Sent. kb3 15:00 Urine Microscopic Only Sent. kb3 15:00 Ketone, Serum Sent. kb3 15:00 Inserted saline lock: 20 gauge in right antecubital area, using aseptic technique. kb3 Blood collected. 16:30 Izabella Rosen, RN is Primary Nurse. tp1 16:39 Bed in low position. Call light in reach. Side rails up X 1. Pulse ox on. NIBP on. tp1 17:11 CT Stone Protocol In Process Unspecified. EDMS 17:55 No provider procedures requiring assistance completed. tp1 18:55 Raffaele Weeks MD is Referral Physician. cp 19:34 IV discontinued, intact, bleeding controlled, No redness/swelling at site. Pressure ja4 dressing applied. Administered Medications: 16:54 Drug: fentaNYL (PF) 25 mcg Route: IVP; Site: right antecubital; tp1 17:28 Follow up: Response: Pain is decreased tp1 16:57 Drug: Rocephin (cefTRIAXone) 1 grams Route: IV; Rate: calculated rate; Site: right tp1 antecubital; 17:54 Follow up: Response: No adverse reaction; IV Status: Completed infusion; IV Intake: tp1 100ml 17:24 Drug: NS 0.9% 500 ml Route: IV; Rate: bolus; Site: right antecubital; tp1 19:06 Follow up: IV Status: Completed infusion; IV Intake: 500ml tp1 17:47 Drug: Flomax (tamsulosin) 0.4 mg Route: PO; tp1 18:51 Follow up: Response: No adverse reaction tp1 17:54 Drug: Magnesium Sulfate 1 grams Route: IVPB; Infused Over: 1 hrs; Site: right tp1 antecubital; 18:51 Follow up: Response: No adverse reaction; IV Status: Completed infusion; IV Intake: tp1 100ml Medication: 16:39 VIS not applicable for this client. tp1 Intake: 17:54 IV: 100ml; Total: 100ml. tp1 18:51 IV: 100ml; Total: 200ml. tp1 19:06 IV: 500ml; Total: 700ml. tp1 Outcome: 18:57 Discharge ordered by . cp 19:34 Discharged to home [facility] 19:34 Condition: stable 19:34 Discharge instructions given to patient, Instructed on discharge instructions, follow up and referral plans. medication usage, Prescriptions given X 4. 19:35 Patient left the ED. [facility] Addendum: 01/19/2022 11:23 Addendum: Culture Results: Positive urine culture. Bacteria is resistant to, has s s intermediate sensitivity, or is not tested against prescribed antibiotics. Report given to ALAINA for further evaluation and then to soldering machine operator for follow up with patient. Phone call Attempt #1 Attempted to call patient. No answer. Attempted to leave , but no VM is set up. FAISAL Mendez recommends to stop Cipro and call in Augmentin 875 mg 1 tab PO BID x 10 days no refills. Will attempt to make contact again later today. Signatures: Dispatcher [employer] EDMS Merna Hilton Irene, RN RN Georgia Barrientos RN RN ss Aly Martinez PA PA cp Parker, Tiffany, RN RN tp1 Becky Church MD MD sd2 Elaine Du RN RN kb3 Renato Mclaughlin, RN RN ja4 Corrections: (The following items were deleted from the chart) 01/16 14:27 Allergies: No Known Allergies; 14: PMHx: Hyperthyroidism; 01/19 11:32 11:23 Addendum: Culture Results: ss ss
[2022-01-16 20:58] VITALS: TEMP 99
[2022-01-16 21:10] VITALS: O2SAT 95
[2022-01-16 21:18] VITALS: BP 118/52
== END 2022-01-16 19:35 | disposition home or self-care (01) ==
LOC: ER 13:59
DX: N20.1 Calculus of ureter (principal); N39.0 Urinary tract infection, site not specified; E11.9 Type 2 diabetes mellitus without complications; Z79.4 Long term (current) use of insulin; I10 Essential (primary) hypertension; Z79.82 Long term (current) use of aspirin; Z91.013 Allergy to seafood
CPT/HCPCS: 96365; 96367; 87088; 85025; 87086; 36415; 82010; 83690; 80053; 76377; 74176; 96375; 99284; J3010; J3475; J7040; 81003; 81015; 87077; 87186